=== PATIENT | male | born 1960 | race Caucasian/White ===

== ENCOUNTER 2023-04-06 10:49 | Emergency (ER) | payer OTHER ==
[2023-04-06] MEDS ORDERED: Lidocaine 1% 10 ML MDV INJECT ONE (11:05)
[2023-04-06 11:28] VITALS: PULSE 64
[2023-04-06 11:32] VITALS: BP 149/87
== END 2023-04-06 11:31 | disposition home or self-care (01) ==
LOC: VM.ED 10:49
DX: S01.01XA Laceration without foreign body of scalp, initial encounter (principal); Z87.891 Personal history of nicotine dependence; W22.8XXA Striking against or struck by other objects, initial encounter; Y92.89 Other specified places as the place of occurrence of the external cause; Y99.0 Civilian activity done for income or pay
CPT/HCPCS: 12002; 12013; 99282; 99283; J3490

== ENCOUNTER 2025-04-11 09:06 | Day surgery (SDC) | payer OTHER ==
[~2025-04-11 09:06] MED LIST: Lactated Ringers 1,000 ML IV SCH
[2025-04-11] MEDS: Lactated Ringers 1,000 ML IV SCH (09:25)
[2025-04-11] MEDS ORDERED: fentaNYL 100 MCG/2 ML SDV ONE ×2 (11:01→11:56)
[2025-04-11] MEDS ORDERED: Midazolam 1 MG/ML 2 ML SDV ONE ×2 (11:01→11:56)
[2025-04-11] MEDS ORDERED: Propofol 200 MG/20 ML SDV ONE ×5 (11:01→12:19)
[2025-04-11] MEDS ORDERED: ePHEDrine 50 MG/ML SDV ONE (12:27)
[2025-04-11 13:02] VITALS: BP 142/93; PULSE 99
== END 2025-04-11 13:30 | disposition home or self-care (01) ==
LOC: VM.SDS 09:06
PROVIDERS: ATTEND Family Medicine
DX: Z12.11 Encounter for screening for malignant neoplasm of colon (principal); D12.3 Benign neoplasm of transverse colon; K63.5 Polyp of colon; K63.89 Other specified diseases of intestine; K57.30 Diverticulosis of large intestine without perforation or abscess without bleeding; E78.00 Pure hypercholesterolemia, unspecified; I10 Essential (primary) hypertension; Z79.899 Other long term (current) drug therapy; Z91.018 Allergy to other foods; Z86.0100 Personal history of colon polyps, unspecified
CPT/HCPCS: 00811; J2250; J2704; J3010; J3490; J7120